=== PATIENT | female | born 1980 | race American Indian/Alaskan Native ===

== ENCOUNTER 2017-03-08 13:49 | Emergency (ER) | payer SELFPAY ==
[2017-03-08 14:27] VITALS: BP 143/82
[2017-03-08 14:58] LABS: Basophils % (Auto) 0.3 % (0.0-1.8); Eosinophils % (Auto) 0.1 % (0.0-4.3); Hematocrit 38.3 % (30.3-42.9); Hemoglobin 11.9 gm/dl (10.1-14.3); Mean Corpuscular HGB Conc 31 % (30-34); Mean Corpuscular Volume 81 fl (79-97); Platelet Count 244 K/mm3 (140-440); Red Blood Count 4.73 M/mm3 (3.65-5.03); Red Cell Distribution Width 17.1 % (13.2-15.2); White Blood Count 12.1 K/mm3 (4.5-11.0)
[2017-03-08 15:02] LABS: Mean Corpuscular Hemoglobin 25 pg (28-32)
[2017-03-08 15:22] LABS: Anion Gap 18 mmol/L; BUN/Creatinine Ratio 13; Blood Urea Nitrogen 8 mg/dL (7-17); Carbon Dioxide 24 mmol/L (22-30); Chloride 100.9 mmol/L (98-107); Glucose 111 mg/dL (65-100); Potassium 3.3 mmol/L (3.6-5.0); Sodium 140 mmol/L (137-145)
--- NOTE | 2017-03-08 16:05 | XRay Report ---
CHEST 2 VIEWS INDICATION: Chest tightness, shortness of breath. COMPARISON: None similar at this institution. FINDINGS: Frontal and lateral chest radiographs demonstrate slight limited inspiration with mild exaggerated heart size. Grossly normal mediastinal and hilar contours. No pleural effusions or CHF. Multilevel mid to lower thoracic spondylosis. CONCLUSION: No significant acute chest process, as described. Thank you for the opportunity to participate in this patient's care.
== END 2017-03-08 23:00 | disposition left against medical advice (07) ==
LOC: ED 13:49
DX: R51 Headache (principal); Z53.21 Procedure and treatment not carried out due to patient leaving prior to being seen by health care provider
CPT/HCPCS: 36415; 71020; 80048; 84484; 84703; 85025; 93005; 93010